=== PATIENT | female | born 1990 | race Caucasian/White ===

== ENCOUNTER 2016-07-11 21:54 | Emergency (ER) | payer BC ==
--- NOTE | 2016-07-11 22:08 | ED ---
Lia More Erika, scribed for Zaid Lomas MD on 07/11/16 at 2202 . Neurological HPI - HPI Summary HPI Summary: Patient is a 25-year-old female presenting to the ED with a CC of witnessed seizure. Pt was brought in to the ED by EMS, who stated pt was post-ictal en route, and then had another seizure around 21:40. They stated they were unable to obtain IV access. They gave pt intranasal Versed, and pt improved. They report pt's vitals were stable en route. Pt has a Hx of seizures, diagnosed as epilepsy. - History of Current Complaint Stated Complaint: SEIZURE Time Seen by Provider: 07/11/16 21:56 Hx Obtained From: Patient, EMS Onset/Duration: Sudden Onset, Started minutes ago, Resolved Timing: Intermittent Episodes Lasting: Onset Severity: Moderate Current Severity: Mild Number of Seizures: 2 Seizure Character: Total-Clonic Aggravating: Nothing Alleviating: EMS Treatment - Versed Associated Signs and Symptoms: Positive: Decreased Level of Consciousness - Post -ictal state Related Hx: Seizure - Allergy/Home Medications Allergies/Adverse Reactions: Allergies Allergy/AdvReac Type Severity Reaction Status Date / Time No Known Allergies Allergy Verified 12/23/15 10:20 PMH/Surg Hx/FS Hx/Imm Hx Endocrine/Hematology History: Denies: Hx Diabetes Cardiovascular History: Denies: Hx Congestive Heart Failure, Hx Hypertension, Hx Pacemaker/ICD Respiratory History: Reports: Hx Asthma, Other Respiratory Problems/Disorders - HEART MURMUR History: Denies: Hx Dialysis, Hx Renal Disease Sensory History: Reports: Hx Contacts or Glasses - contacts Denies: Hx Hearing Aid Opthamlomology History: Reports: Hx Contacts or Glasses - contacts Neurological History: Reports: Hx Seizures, Other Neuro Impairments/Disorders - HEADACHES/BLACKOUTS Psychiatric History: Denies: Hx Panic Disorder - Surgical History Surgery Procedure, Year, and Place: TONSILLECTOMY 1993 - Family History Known Family History: Positive: Cardiac Disease - Extensive FHx, Hypertension, Diabetes - Type II - grandfather Family History: Denies FHx seizures - Social History Alcohol Use: Occasionally Hx Substance Use: No Substance Use Type: Reports: None Hx Tobacco Use: No Smoking Status (MU): Never Smoked Tobacco Review of Systems Negative: Fever Neurological: Other - Seizure, post-ictal state All Other Systems Reviewed And Are Negative: Yes Physical Exam Triage Information Reviewed: Yes Vital Signs On Initial Exam: Temp Pulse Resp BP Pulse Ox 98.6 F 88 16 125/86 99 07/11/16 22:17 07/11/16 22:17 07/11/16 22:17 07/11/16 22:17 07/11/16 22:17 Vital Signs Reviewed: Yes Appearance: Positive: No Pain Distress, Thin Skin: Positive: Warm Eyes: Positive: EOMI, ZOË ENT: Positive: Hearing grossly normal Neck: Positive: Supple Respiratory/Lung Sounds: Positive: Clear to Auscultation, Breath Sounds Present Cardiovascular: Positive: Normal Abdomen Description: Positive: Nontender, Soft Bowel Sounds: Positive: Present Musculoskeletal: Positive: Strength/ROM Intact Neurological: Positive: Sensory/Motor Intact, Alert, Oriented to Person Place, Time, Normal Gait Psychiatric: Positive: Normal Diagnostics - Laboratory Result Diagrams: 07/11/16 22:15 07/11/16 22:15 Lab Statement: Any lab studies that have been ordered have been reviewed, and results considered in the medical decision making process. 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 Pt was treated by EMS with Versed. She was observed in the ED and did not have another seizure, and feels improved. She will be discharged with follow up from neurology. - Diagnoses Provider Diagnoses: Seizure Discharge - Discharge Plan Condition: Stable Disposition: HOME Patient Education Materials: Recurrent Seizures in Adults (ED) Referrals: Swathi Medellin NP [Primary Care Provider] - Zaid Fontaine MD [Medical Doctor] - Additional Instructions: Please follow up with neurology. The documentation as recorded by the Lia zaragoza Erika accurately reflects the service I personally performed and the decisions made by me, Zaid Lomas MD.
[2016-07-11 22:38] LABS: Hematocrit 41 % (35-47); Hemoglobin 13.6 g/dl (12.0-16.0); Mean Corpuscular HGB Conc 33 g/dl (31-36); Mean Corpuscular Hemoglobin 29 pg (27-31); Mean Corpuscular Volume 85 fL (80-97); Mean Platelet Volume 8 um3 (7.4-10.4); Red Blood Count 4.76 10^6/ul (4.0-5.4); Red Cell Distribution Width 13 % (10.5-15); White Blood Count 7.1 10^3/ul (3.5-10.8)
[2016-07-11 23:07] LABS: ALT 18 U/L (7-52); AST 18 U/L (13-39); Albumin 4.9 g/dL (3.2-5.2); Alkaline Phosphatase 82 U/L (34-104); Anion Gap 0 mmol/L (2-11); BUN/Creatinine Ratio 10.7 (8-20); Blood Urea Nitrogen 9 mg/dL (6-24); CO2 Carbon Dioxide 26 mmol/L (22-32); Calcium 10.4 mg/dL (8.6-10.3); Chloride 108 mmol/L (101-111); EGFR African American 108.1 (>60); Globulin 2.3 g/dL (2-4); Glucose 105 mg/dL (70-100); Magnesium 1.9 mg/dL (1.9-2.7); Potassium 3.6 mmol/L (3.5-5.0); Sodium 134 mmol/L (133-145); Total Protein 7.2 g/dL (6.4-8.9)
[2016-07-11 23:45] VITALS: BP 115/86
== END 2016-07-11 23:44 | disposition home or self-care (01) ==
LOC: ED 21:54
DX: R56.9 Unspecified convulsions (principal)
CPT/HCPCS: 36415; 80053; 83605; 83735; 84702; 85025; 93005; 99284

== ENCOUNTER 2016-07-17 18:55 | Emergency (ER) | payer BC ==
[2016-07-17] MEDS ORDERED: NS 0.9% 1000 ML* 1,000 ML IV ONE (19:35)
[2016-07-17 20:24] LABS: Hematocrit 37 % (35-47); Hemoglobin 12.2 g/dl (12.0-16.0); Mean Corpuscular HGB Conc 34 g/dl (31-36); Mean Corpuscular Hemoglobin 28 pg (27-31); Mean Corpuscular Volume 85 fL (80-97); Mean Platelet Volume 8 um3 (7.4-10.4); Red Blood Count 4.31 10^6/ul (4.0-5.4); Red Cell Distribution Width 12 % (10.5-15); White Blood Count 6.5 10^3/ul (3.5-10.8)
[2016-07-17 20:29] LABS: Urine Bilirubin Negative (Negative); Urine Glucose Negative (Negative); Urine Nitrite Negative (Negative)
[2016-07-17 20:36] LABS: Albumin 4.6 g/dL (3.2-5.2); Calcium 9.8 mg/dL (8.6-10.3); EGFR African American 105.2 (>60); EGFR Non-African American 81.8 (>60); Globulin 2.1 g/dL (2-4); Magnesium 1.9 mg/dL (1.9-2.7); Potassium 3.4 mmol/L (3.5-5.0); Total Bilirubin 0.4 mg/dL (0.2-1.0); Total Protein 6.7 g/dL (6.4-8.9)
--- NOTE | 2016-07-17 21:32 | ED ---
I, Oh,Sorandall, scribed for Laith Robert MD on 07/17/16 at 1935 . Neurological HPI - HPI Summary HPI Summary: This 25 y/o female presents to ED for a seizure episode at 1800 PM. Pt reports unspecified aura prior to the episode today and mild confusion after the episode. The episode lasts about 10-12 minutes. Pt is witnessed to have "twitchy " movement as per her baseline during seizures today. PMHx does include known seizure disorder with the last episode of status epilepticus 6 days ago. Pt is currently on lamictal, keppra, and topamax, and states that she recently has had increased episodes since 2 months ago. Pt denies any recent rhinorrhea, cough, fever, chills, or any other flu-like symptoms. No sleep disturbance. Primary care involves Dr. Brock as her neurologist. Pt reports that she was advised to increase dose of her seizure medication by Dr. Naik, but she has been noncompliant to that particular instruction. - History of Current Complaint Stated Complaint: SEIZURE Time Seen by Provider: 07/17/16 19:07 Hx Obtained From: Patient Onset/Duration: Sudden Onset, Resolved Timing: Intermittent Episodes Lasting: Seizure Severity: Moderate Neurological Deficit Location: Generalized Character: Confusion - post -ictal - Allergy/Home Medications Allergies/Adverse Reactions: Allergies Allergy/AdvReac Type Severity Reaction Status Date / Time No Known Allergies Allergy Verified 12/23/15 10:20 Home Medications: Home Medications Lamotrigine [Lamictal] 150 mg PO BEDTIME 07/17/16 [History Confirmed 07/17/16] Topiramate [Topamax] 25 mg PO BEDTIME 07/17/16 [History Confirmed 07/17/16] PMH/Surg Hx/FS Hx/Imm Hx Endocrine/Hematology History: Denies: Hx Diabetes Cardiovascular History: Denies: Hx Congestive Heart Failure, Hx Hypertension, Hx Pacemaker/ICD Respiratory History: Reports: Hx Asthma, Other Respiratory Problems/Disorders - HEART MURMUR History: Denies: Hx Dialysis, Hx Renal Disease Sensory History: Reports: Hx Contacts or Glasses - contacts Denies: Hx Hearing Aid Opthamlomology History: Reports: Hx Contacts or Glasses - contacts Neurological History: Reports: Hx Seizures, Other Neuro Impairments/Disorders - HEADACHES/BLACKOUTS Psychiatric History: Denies: Hx Panic Disorder - Surgical History Surgery Procedure, Year, and Place: TONSILLECTOMY 1994 Infectious Disease History: Denies: Traveled Outside the [place] in Last 30 Days - Family History Known Family History: Positive: Cardiac Disease - Extensive FHx, Hypertension, Diabetes - Type II - grandfather Family History: Denies FHx seizures - Social History Alcohol Use: Occasionally Hx Substance Use: No Substance Use Type: Reports: None Hx Tobacco Use: No Smoking Status (MU): Never Smoked Tobacco Review of Systems Negative: Fever Negative: Sore Throat Neurological: Other - positive for seizure, currently resolved Negative: Headache All Other Systems Reviewed And Are Negative: Yes Physical Exam - Summary Physical Exam Summary: The patient is well-nourished in no acute distress and in no acute pain. The skin is warm and dry and skin color reflects adequate perfusion. HEENT: The head is normocephalic and atraumatic. The pupils are equal and reactive. The conjunctivae are clear and without drainage. Nares are patent and without drainage. Mouth reveals moist mucous membranes and the throat is without erythema and exudate. Neck is supple with full range of motion and non-tender. There are no carotid bruits. There is no neck vein distension. Respiratory: Chest is non-tender. Lungs are clear to auscultation and breath sounds are symmetrical and equal. Cardiovascular: Hear is regular rate and rhythm. There is no murmur or rub auscultated. There is no peripheral edema and pulses are symmetrical and equal. Abdomen: The abdomen is soft and non-tender. There are normal bowel sounds heard in all four quadrants and there is no organomegaly palpated. Musculoskeletal: There is no back pain noted. Extremities are non-tender with full range of motion. There is good capillary refill. There is no peripheral edema or calf tenderness elicited. Neurological: Patient is alert and oriented to person, place and time. The patient has symmetrical motor strength in all four extremities. Cranial nerves are grossly intact. Deep tendon reflexes are symmetrical and equal in all four extremities. Psychiatric: The patient has an appropriate affect and does not exhibit any anxiety or depression. Triage Information Reviewed: Yes Vital Signs On Initial Exam: Initial Vitals Temp Pulse Resp BP Pulse Ox 98.6 F 101 20 126/75 100 07/17/16 19:18 07/17/16 19:18 07/17/16 19:18 07/17/16 19:18 07/17/16 19:18 Vital Signs Reviewed: Yes Diagnostics - Vital Signs Vital Signs Temp Pulse Resp BP Pulse Ox 07/17/16 20:21 99 18 124/73 100 07/17/16 19:18 98.6 F 101 20 126/75 100 - Laboratory Lab Results: Lab Results 07/17/16 07/17/16 07/17/16 Range/Units 20:05 20:05 20:05 WBC 6.5 (3.5-10.8) 10^3/ul RBC 4.31 (4.0-5.4) 10^6/ul Hgb 12.2 (12.0-16.0) g/dl Hct 37 (35-47) % MCV 85 (80-97) fL MCH 28 (27-31) pg MCHC 34 (31-36) g/dl RDW 12 (10.5-15) % Plt Count 226 (150-450) 10^3/ul MPV 8 (7.4-10.4) um3 Neut % (Auto) 55.7 (38-83) % Lymph % (Auto) 35.2 (25-47) % Tift % (Auto) 6.9 (1-9) % Eos % (Auto) 1.4 (0-6) % Baso % (Auto) 0.8 (0-2) % Absolute Neuts (auto) 3.6 (1.5-7.7) 10^3/ul Absolute Lymphs (auto) 2.3 (1.0-4.8) 10^3/ul Absolute Monos (auto) 0.4 (0-0.8) 10^3/ul Absolute Eos (auto) 0.1 (0-0.6) 10^3/ul Absolute Basos (auto) 0.1 (0-0.2) 10^3/ul Absolute Nucleated RBC 0 10^3/ul Nucleated RBC % 0 INR (Anticoag Therapy) 0.96 (0.89-1.11) Sodium (133-145) mmol/L Potassium (3.5-5.0) mmol/L Chloride (101-111) mmol/L Carbon Dioxide (22-32) mmol/L Anion Gap (2-11) mmol/L BUN (6-24) mg/dL Creatinine (0.51-0.95) mg/dL Est GFR ( Amer) (>60) Est GFR (Non-Af Amer) (>60) BUN/Creatinine Ratio (8-20) Glucose (70-100) mg/dL Lactic Acid (0.5-2.0) mmol/L Calcium (8.6-10.3) mg/dL Magnesium (1.9-2.7) mg/dL Total Bilirubin (0.2-1.0) mg/dL AST (13-39) U/L ALT (7-52) U/L Alkaline Phosphatase (34-104) U/L Total Protein (6.4-8.9) g/dL Albumin (3.2-5.2) g/dL Globulin (2-4) g/dL Albumin/Globulin Ratio (1-3) Urine Color Straw Urine Appearance Clear Urine pH 6.0 (5-9) Ur Specific [place] 1.010 (1.010-1.030) Urine Protein Negative (Negative) Urine Ketones Trace H (Negative) Urine Blood Negative (Negative) Urine Nitrate Negative (Negative) Urine Bilirubin Negative (Negative) Urine Urobilinogen Negative (Negative) Ur Leukocyte Esterase Negative (Negative) Urine Glucose Negative (Negative) 07/17/16 07/17/16 Range/Units 20:05 20:05 WBC (3.5-10.8) 10^3/ul RBC (4.0-5.4) 10^6/ul Hgb (12.0-16.0) g/dl Hct (35-47) % MCV (80-97) fL MCH (27-31) pg MCHC (31-36) g/dl RDW (10.5-15) % Plt Count (150-450) 10^3/ul MPV (7.4-10.4) um3 Neut % (Auto) (38-83) % Lymph % (Auto) (25-47) % Tift % (Auto) (1-9) % Eos % (Auto) (0-6) % Baso % (Auto) (0-2) % Absolute Neuts (auto) (1.5-7.7) 10^3/ul Absolute Lymphs (auto) (1.0-4.8) 10^3/ul Absolute Monos (auto) (0-0.8) 10^3/ul Absolute Eos (auto) (0-0.6) 10^3/ul Absolute Basos (auto) (0-0.2) 10^3/ul Absolute Nucleated RBC 10^3/ul Nucleated RBC % INR (Anticoag Therapy) (0.89-1.11) Sodium 138 (133-145) mmol/L Potassium 3.4 L (3.5-5.0) mmol/L Chloride 107 (101-111) mmol/L Carbon Dioxide 24 (22-32) mmol/L Anion Gap 7 (2-11) mmol/L BUN 12 (6-24) mg/dL Creatinine 0.86 (0.51-0.95) mg/dL Est GFR ( Amer) 105.2 (>60) Est GFR (Non-Af Amer) 81.8 (>60) BUN/Creatinine Ratio 14.0 (8-20) Glucose 115 H (70-100) mg/dL Lactic Acid 1.2 (0.5-2.0) mmol/L Calcium 9.8 (8.6-10.3) mg/dL Magnesium 1.9 (1.9-2.7) mg/dL Total Bilirubin 0.40 (0.2-1.0) mg/dL AST 13 (13-39) U/L ALT 12 (7-52) U/L Alkaline Phosphatase 65 (34-104) U/L Total Protein 6.7 (6.4-8.9) g/dL Albumin 4.6 (3.2-5.2) g/dL Globulin 2.1 (2-4) g/dL Albumin/Globulin Ratio 2.2 (1-3) Urine Color Urine Appearance Urine pH (5-9) Ur Specific [place] (1.010-1.030) Urine Protein (Negative) Urine Ketones (Negative) Urine Blood (Negative) Urine Nitrate (Negative) Urine Bilirubin (Negative) Urine Urobilinogen (Negative) Ur Leukocyte Esterase (Negative) Urine Glucose (Negative) Result Diagrams: 07/17/16 20:05 07/17/16 20:05 Lab Statement: Any lab studies that have been ordered have been reviewed, and results considered in the medical decision making process. - EKG 190 Cardiac Rate: NL - 89 bpm EKG Rhythm: Sinus Rhythm Re-Evaluation - Re-Evaluation First Eval Re-Evaluation Time: 21:14 Comment: ERP in room to update pt on blood work results. Course/Dx - Course Assessment/Plan: This 25 y/o female presents to ED for a seizure episode today at 1800 PM. PMHx is signficant for known seizure disorder, and pt is currently on keppra, topamax, and lamictal. Pt reports recent increased frequency of siezures with last episode 6 days ago. Blood work and UA are wnl except elevated serum glucose, slightly depressed potassium level, and trace amount of ketone in urine. EKG is normal. Physical exam finding and bloodwork results are shared with pt, and pt is advised to follow up with her neurologist, Dr. Anglin , as scheduled in [facility]. - Differential Dx Differential Diagnoses Neuro: Positive: Metabolic Abnormality, Seizure Disorder , Vasovagal Reaction - Diagnoses Provider Diagnoses: Seizure disorder Discharge - Discharge Plan Condition: Stable Disposition: HOME Patient Education Materials: Recurrent Seizures in Adults (ED) Referrals: Swathi Medellin NP [Primary Care Provider] - 2 Days Additional Instructions: Please be sure to follow up with your neurologist, Dr. Anglin in [facility] as scheduled. The documentation as recorded by the Man zaragoza Soohyun accurately reflects the service I personally performed and the decisions made by me, Laith Robert MD.
[2016-07-17 21:49] VITALS: BP 126/87
== END 2016-07-17 21:48 | disposition home or self-care (01) ==
LOC: ED 18:55
DX: R56.9 Unspecified convulsions (principal)
CPT/HCPCS: 36415; 80053; 80175; 80201; 81003; 83605; 83735; 85025; 85610; 93005; 96360; 99283

== ENCOUNTER 2018-11-14 14:56 | Emergency (ER) | payer BC, OTHER ==
[2018-11-14 15:10] VITALS: BP 124/87
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
== END 2018-11-14 15:40 | disposition home or self-care (01) ==
LOC: UCEAST 14:56
DX: S46.811A Strain of other muscles, fascia and tendons at shoulder and upper arm level, right arm, initial encounter (principal); W50.0XXA Accidental hit or strike by another person, initial encounter; Y92.215 Trade school as the place of occurrence of the external cause; Y99.0 Civilian activity done for income or pay; R03.0 Elevated blood-pressure reading, without diagnosis of hypertension; J45.909 Unspecified asthma, uncomplicated; Z82.49 Family history of ischemic heart disease and other diseases of the circulatory system; Z83.3 Family history of diabetes mellitus
CPT/HCPCS: 99212; G0463

== ENCOUNTER 2019-04-17 21:19 | Emergency (ER) | payer BC, OTHER ==
--- NOTE | 2019-04-17 21:24 | UC ---
Lower Extremity/Ankle HPI - HPI Summary HPI Summary: 28 yo female presents with LEFT ankle/foot pain. She tells me that she was playing with her dogs this evening around 1830 and inverted her left ankle. Since that time has had pain and swelling to her left ankle/foot. Has been icing the area with no improvement. She is ambulatory without assistance, but has pain with weight bearing. - History of Current Complaint Stated Complaint: ROLLED LEFT ANKLE Time Seen by Provider: 04/17/19 21:24 Hx Obtained From: Patient Hx Last Menstrual Period: implant BC Onset/Duration: Sudden Onset Severity Initially: Moderate Severity Currently: Moderate Pain Intensity: 3 Pain Scale Used: 0-10 Numeric - Allergies/Home Medications Allergies/Adverse Reactions: Allergies Allergy/AdvReac Type Severity Reaction Status Date / Time No Known Allergies Allergy Verified 04/17/19 21:36 Home Medications: Home Medications Naproxen [Naproxen 375 mg tab] 375 mg PO Q12H 04/17/19 [History Confirmed ] PMH/Surg Hx/FS Hx/Imm Hx - Additional Past Medical History Additional PMH: ADHD - Surgical History Surgical History: Yes Surgery Procedure, Year, and Place: TONSILLECTOMY 1993 - Family History Known Family History: Positive: Cardiac Disease - Extensive FHx, Hypertension, Diabetes - Type II - grandfather Family History: Denies FHx seizures - Social History Lives: With Family Alcohol Use: Occasionally Substance Use Type: None Smoking Status (MU): Never Smoked Tobacco Review of Systems All Other Systems Reviewed And Are Negative: No Constitutional: Positive: Negative Skin: Positive: Negative Neurovascular: Positive: Negative Musculoskeletal: Positive: Other: - Ankle injury Neurological: Positive: Negative Psychological: Positive: Negative Physical Exam - Summary Physical Exam Summary: GENERAL: NAD. WDWN. No pain distress. SKIN: No rashes, sores, lesions, or open wounds. CHEST: No accessory muscle use. Breathing comfortably and in no distress. CV: Pulses intact PT and DP. Cap refill <2seconds MSK: LEFT ANKLE/FOOT: FROM. Mild TTP about base 5th MT. NTTP lateral malleolus. Strength 5/5. Mild edema about base of 5th MT. Negative talar tilt. No increased laxity. Negative [place] test. NEURO: Alert. Sensations intact and symmetric B/L LEs PSYCH: Age appropriate behavior. Triage Information Reviewed: Yes Vital Signs: Vital Signs: Temp Pulse Resp BP Pulse Ox 97.8 F 81 16 126/75 100 04/17/19 21:33 04/17/19 21:33 04/17/19 21:33 04/17/19 21:33 04/17/19 21:33 Vital Signs Reviewed: Yes Diagnostics - Radiology XR Radiology Interpretation Completed By: Radiologist Summary of Radiographic Findings: No fx Lower Extremity Course/Dx - Course Course Of Treatment: XR wet read negative for ankle or foot fx. Suspect sprain. Pt was placed in a CAM boot and advised to RICE and take tylenol/ibuprofen as directed for discomfort. F/u with Ortho if symptoms do not improve within 5-7 days - Differential Dx/Diagnosis Provider Diagnosis: Foot sprain Discharge ED - Sign-Out/Discharge Documenting (check all that apply): Patient Departure All imaging exams completed and their final reports reviewed: No - Discharge Plan Condition: Stable Disposition: HOME Patient Education Materials: Foot Sprain (ED) Forms: *Work Release Referrals: Gopal Silva DO [Primary Care Provider] - Rishi Wayne MD [Medical Doctor] - If Needed Additional Instructions: If you develop a fever, shortness of breath, chest pain, new or worsening symptoms - please call your PCP or go to the ED immediately. 1) Rest, Ice, and elevate your foot intermittently throughout the day to reduce pain and swelling 2) Use the walking boot as needed for comfort 3) If your symptoms do not improve in 5-7 days, please call Orthopedics at the number below to schedule an appointment for a recheck - Billing Disposition and Condition Condition: STABLE Disposition: Home
--- OUTSIDE RECORDS SUMMARY | 2019-04-17 21:26 | XMS REPORT | Summary of Care ---
:1990 Author Organization [facility] Address [address] [facility] [place] [address] Care Team Providers Name Role Phone Gopal Silva Primary Care Provider Reason for Visit Reason Comments Other nexplenon Encounter Details Date Type Department Care Team Description 04/01/2019 Office Visit [facility] [place], Nexplanon removal ( Primary Dx); Practice Marika Vila MD Nexplanon insertion; [address] [place] [address] [place] [address] [place] [address] [phone] Allergies Active Allergy Reactions Severity Noted Date Comments No Known Drug Allergy 09/11/2007 documented as of this encounter (statuses as of 04/01/2019) Medications Medication Sig Dispensed Refills Start Date End Date Status Etonogestrel (NEXPLANON) Inject beneath 0 Active 68 MG Subcutaneous the skin. Implant methylphenidate 54 MG Take 54 mg by 30 Tab 0 02/14/2019 Active Oral Tab CRIndications: mouth DAILY. Max Attention deficit Daily Amount: 54 disorder, unspecified mg. hyperactivity presence Hospital, Clinic, or Other Ordered Dose Route Frequency Start Date End Date Status Facility Administered Medication Etonogestrel 68 MG IMPL 1 Each SC NOW 04/01/2019 Active (Ordered as: NEXPLANON)Indications: Nexplanon insertion documented as of this encounter (statuses as of 04/01/2019) Active Problems Problem Noted Date Seizure disorder 09/05/2012 Overview: Sees Dr. Brock. On lamictal. Asthma 09/11/2007 Heart Murmur 09/11/2007 Overview: Innocent murmur. Seen in past by Dr. Ambrosio, pediatric nephrologist. Migraines 09/11/2007 Attention deficit disorder 09/11/2007 documented as of this encounter (statuses as of 04/01/2019) Immunizations Name Administration Dates Next Due DTAP Vaccine 03/03/1994, 03/22/1993, 01/06/1993, 1992 HIB 08/28/1994, 01/06/1993, 1992 Human Papillomavirus 03/29/2007, 11/29/2006, 10/29/2006 Influenza (IM) Preservative Free 04/01/2019, 03/13/2018, 03/16/2016, 05/14/2009, 04/08/2007 Influenza (IM) W/Pres 07/14/2014 MENINGOCOCCAL POLYSACCHARIDE 09/07/2010 VACCINE(MENOMUNE) MMR VACCINE 12/08/1993 Polio - Inactivated Vaccine 03/03/1994, 01/06/1993, 1992 TDAP Vaccine 05/14/2009 Tuberculin Skin Test 08/29/1993 documented as of this encounter Social History Tobacco Use Types Packs/Day Years Used Date Never Smoker Smokeless Tobacco: Never Used Alcohol Use Drinks/Week oz/Week Comments Yes 0 Standard drinks or equivalent 0.0 few drinks a week Sex Assigned at Date Recorded Not on file Job Start Date Occupation Industry Not on file Not on file Not on file Travel History Travel Start Travel End No recent travel history available. documented as of this encounter Last Filed Vital Signs Vital Sign Reading Time Taken Comments Blood Pressure 108/62 04/01/2019 1:00 PM EDT Pulse 79 04/01/2019 1:00 PM EDT Temperature 36.4 04/01/2019 1:00 PM EDT C (97.6 F) Respiratory Rate - - Oxygen Saturation 99% 04/01/2019 1:00 PM EDT Inhaled Oxygen Concentration - - Weight 55.3 kg (122 lb) 04/01/2019 1:00 PM EDT Height 157.5 cm (5' 2") 04/01/2019 1:00 PM EDT Body Mass Index 22.31 04/01/2019 1:00 PM EDT documented in this encounter Patient Instructions Patient InstructionsMarika Cummins MD - 04/01/2019 1:00 PM EDTI removed and replaced your Nexplanon today. You can expect some bruising of your inner arm. If the area becomes hot, red, any purulent drainage, any sign of infection, please return right away. Patient Education Etonogestrel (e toe alex SCHROEDER jadyn) Brand Names: US Implanon [DSC]; Nexplanon What is this drug used for? It is used to prevent . What do I need to tell my doctor BEFORE I take this drug? If you have an allergy to etonogestrel or any other part of this drug. If you are allergic to any drugs like this one, any other drugs, foods, or other substances. Tell your doctor about the allergy and what signs you had, like rash; hives; itching; shortness of breath; wheezing; cough; swelling of face, lips, tongue, or throat; or any other signs. If you have blood clots or have had blood clots in the past. If you have liver tumors. If you have liver disease. If you have unexplained vaginal bleeding. If you have ever had breast cancer or another cancer where hormones make it grow. If you have given within the last 21 days. If you are or may be . Do not take this drug if you are . If you have not started your period. This is not a list of all drugs or health problems that interact with this drug. Tell your doctor and pharmacist about all of your drugs (prescription or OTC, natural products, vitamins) and health problems. You must check to make sure that it is safe for you to take this drug withall of your drugs and health problems. Do not start, stop, or change the dose of any drug without checking with your doctor. What are some things I need to know or do while I take this drug? Tell all of your health care providers that you take this drug. This includes your doctors, nurses, pharmacists, and dentists. Be sure to have regular breast exams and gynecology check-ups. Your doctor will tell you how often to have these. You will also need to do breast self- exams as your doctor has told you. Talk with your doctor. After this drug has been put in, use a non-hormone type of control like condoms until theplacement of this drug has been checked. Talk with your doctor. If you feel that the implant has been broken or bent while in your arm, talk with the doctor. If you get while taking this drug, the chance of outside of the uterus (ectopic ) may be raised. Talk with your doctor. Blood clots have happened with this drug. Sometimes, these blood clots have been deadly. Talk with the doctor. Talk with your doctor if you will need to be still for long periods of time like long trips, bedrest after surgery, or illness. Not moving for long periods may raise your chance of blood clots. A cyst on the ovary may rarely happen. If you have high blood sugar (diabetes), talk with your doctor. This drug may raise blood sugar. Check your blood sugar as you have been told by your doctor. High blood pressure has happened with this drug. Have your blood pressure checked as you have been told by your doctor. This drug may affect certain lab tests. Tell all of your health care providers and lab workers that you take this drug. If you drink grapefruit juice or eat grapefruit often, talk with your doctor. Certain drugs, herbal products, or health problems could cause this drug to not work as well. Be sure your doctor knows about all of your drugs and health problems. This drug may affect how much of some other drugs are in your body. If you are taking other drugs, talk with your doctor. You may need to have your blood work checked more closely while taking this drug with your other drugs. This drug does not stop the spread of diseases like HIV or hepatitis that are passed through blood or having sex. Do not have any kind of sex without using a latex or polyurethane condom. Do not share needles or other things like toothbrushes or razors. Talk with your doctor. If this drug is removed and you do not want to get , use control right after it is removed. has happened shortly after this drug was removed. Talk with the doctor. A test will be done to show that you are NOT before starting this drug. If you get while taking this drug, call your doctor right away. Tell your doctor if you are breast-feeding. You will need to talk about any risks to your baby. What are some side effects that I need to call my doctor about right away? WARNING/CAUTION: Even though it may be rare, some people may have very bad and sometimes deadly sideeffects when taking a drug. Tell your doctor or get medical help right away if you have any of the following signs or symptoms that may be related to a very bad side effect: Signs of an allergic reaction, like rash; hives; itching; red, swollen, blistered, or peeling skin with or without fever; wheezing; tightness in the chest or throat; trouble breathing, swallowing,or talking; unusual hoarseness; or swelling of the mouth, face, lips, tongue, or throat. Signs of liver problems like dark urine, feeling tired, not hungry, upset stomach or stomach pain, light-colored stools, throwing up, or yellow skin or eyes. Signs of high blood sugar like confusion, feeling sleepy, more thirst, more hungry, passing urine more often, flushing, fast breathing, or breath that smells like fruit. Signs of high blood pressure like very bad headache or dizziness, passing out, or change in eyesight. Weakness on 1 side of the body, trouble speaking or thinking, change in balance, drooping on one side of the face, or blurred eyesight. Shortness of breath, a big weight gain, or swelling in the arms or legs. Low mood (depression). Mood changes. Very bad belly pain. Change in eyesight, eye pain, or very bad eye irritation. Loss of eyesight. A lump in the breast or breast soreness. Breast pain. Change in how contact lenses feel in the eyes. Flu-like signs. Vaginal bleeding that is not normal. Call your doctor right away if you have signs of a blood clot like chest pain or pressure; coughing up blood; shortness of breath; swelling, warmth, numbness, change of color, or pain in a leg or arm; or trouble speaking or swallowing. What are some other side effects of this drug? All drugs may cause side effects. However, many people have no side effects or only have minor side effects. Call your doctor or get medical help if any of these side effects or any other side effects bother you or do not go away: Weight gain. Headache. Pimples (acne). Vaginal irritation. Period (menstrual) changes. These include lots of bleeding, spotting, or bleeding between cycles. Irritation where chuy was placed. Belly pain. Throat irritation. Dizziness. Back pain. Upset stomach. Feeling nervous and excitable. These are not all of the side effects that may occur. If you have questions about side effects, franchesca doctor. Call your doctor for medical advice about side effects. You may report side effects to your national health agency. How is this drug best taken? Use this drug as ordered by your doctor. Read all information given to you. Follow all instructions closely. A chuy is placed under the skin in the upper arm. This is a minor surgery. The chuy must be changed every 3 years. Follow what your doctor has told you to do. What do I do if I miss a dose? Call your doctor to find out what to do. How do I store and/or throw out this drug? If you need to store this drug at home, talk with your doctor, nurse, or pharmacist about how to store it. General drug facts If your symptoms or health problems do not get better or if they become worse, call your doctor. Do not share your drugs with others and do not take anyone else's drugs. Keep a list of all your drugs (prescription, natural products, vitamins, OTC) with you. Give this list to your doctor. Talk with the doctor before starting any new drug, including prescription or OTC, natural products, or vitamins. Keep all drugs in a safe place. Keep all drugs out of the reach of children and pets. Throw away unused or drugs. Do not flush down a toilet or pour down a drain unless you are told to do so. Check with your pharmacist if you have questions about the best way to throw out drugs. There may be drug take- back programs in your area. Some drugs may have another patient information leaflet. If you have any questions about this drug, please talk with your doctor, nurse, pharmacist, or other health care provider. If you think there has been an overdose, call your poison control center or get medical care right away. Be ready to tell or show what was taken, how much, and when it happened. Consumer Information Use and Disclaimer This information should not be used to decide whether or not to take this medicine or any other medicine. Only the healthcare provider has the knowledge and training to decide which medicines are rightfor a specific patient. This information does not endorse any medicine as safe, effective, or approved for treating any patient or health condition. This is only a brief summary of general information about this medicine. It does NOT include all information about the possible uses, directions, warnings, precautions, interactions, adverse effects, or risks that may apply to this medicine. This information is not specific medical advice and does not replace information you receive from the healthcare provider. You must talk with the healthcare provider for complete information about the risks and benefits of using this medicine. Last Reviewed Date 2016-12-15 Copyright 2018 [employer] and its affiliates and/ or licensors. All rights reserved. documented in this encounter Progress Notes Marika Cummins MD - 04/01/2019 1:00 PM EDT Nursing Notes: Ivelisse Al LPN 04/01/2019 1:09 PM Signed Chief Complaint Patient presents with Other nexplenon Referred by: Gopal Silva Chief Complaint: Lorena Wright Lader is a 28-y.o. female who presents for removal of old and placement of new nexplanon History of Present Illness/ROS: Patient is here for Nexplanon replacement. Last placed 04/14/2016 by me. She had menses the first year, then none, then started again in December. LMP 2 weeks ago. Review of Systems - General ROS: negative for - chills or fever ENT ROS: negative for - nasal congestion Respiratory ROS: negative for - cough Past Medical History: Diagnosis Date Attention Deficit Disorder 09/11/2007 psych testing 2007: normal intelligence, attention problems Innocent Heart Murmur 09/11/2007 Migraines 09/11/2007 Mild intermittent asthma Seizure disorder (HCC) Past Surgical History: Procedure Laterality Date COLONOSCOPY N/A 12/26/2017 Procedure: COLONOSCOPY; Surgeon: Shila Lynch MD; Location: [facility] GI OR Current Outpatient Medications: Etonogestrel (NEXPLANON) 68 MG Subcutaneous Implant, Inject beneath the skin., Disp: , Rfl: methylphenidate 54 MG Oral Tab CR, Take 54 mg by mouth DAILY. Max Daily Amount: 54 mg., Disp: 30 Tab, Rfl: 0 Current Facility-Administered Medications: Etonogestrel 68 MG IMPL (Ordered as: NEXPLANON), 1 Each, Subcutaneous, NOW, Marika Cummins MD Allergies Allergen Reactions No Known Drug Allergy Social History Socioeconomic History Marital status: Single Spouse name: Not on file Number of children: Not on file Years of education: Not on file Highest education level: Not on file Occupational History Not on file Social Needs Financial resource strain: Not on file Food insecurity: Worry: Not on file Inability: Not on file Transportation needs: Medical: Not on file Non-medical: Not on file Tobacco Use Smoking status: Never Smoker Smokeless tobacco: Never Used Substance and Sexual Activity Alcohol use: Yes Alcohol/week: 0.0 standard drinks Comment: few drinks a week Drug use: No Sexual activity: Yes Partners: Male control/protection: Implant Lifestyle Physical activity: Days per week: Not on file Minutes per session: Not on file Stress: Not on file Relationships Social connections: Talks on phone: Not on file Gets together: Not on file Attends oriental orthodox service: Not on file Active member of club or organization: Not on file Attends meetings of clubs or organizations: Not on file Relationship status: Not on file Intimate partner violence: Fear of current or ex partner: Not on file Emotionally abused: Not on file Physically abused: Not on file Forced sexual activity: Not on file Other Topics Concern Back Care Not Asked Bike Helmet Not Asked Blood Transfusions Not Asked Caffeine Concern Yes Comment: 1 SODA/DAY Exercise Not Asked Hobby Hazards Not Asked International Travel Not Asked Service Not Asked Occupational Exposure Not Asked Seat Belt Not Asked Self-Exams Not Asked Sleep Concern Not Asked Special Diet Not Asked Stress Concern Not Asked Weight Concern Not Asked Social History Narrative Lives with mother, sister in [place], [place] until 2006. Has been living with father in [place], [place]. Family History Problem Relation Age of Onset Heart Father Cancer Maternal Grandfather bladder PHYSICAL EXAMINATION: BP 108/62 (BP Location: Right arm, Patient Position: Sitting) | Pulse 79 | Temp 97.6 F (36.4 C) (Tympanic) | Ht 5' 2" (1.575 m) | Wt 122 lb ( 55.3 kg) | LMP (LMP Unknown) | SpO2 99% | ? No | BMI 22.31 kg/ m Physical Examination: General appearance - alert, well appearing, and in no distress Mental status - alert, oriented to person, place, and time, normal mood, behavior, speech, dress, motor activity, and thought processes Nexplanon is palpable in her left medial upper arm. ASSESSMENT/PLAN: ICD-9-CM ICD-10-CM 1. Nexplanon removal V25.43 Z30.46 REMOVAL OF IMPLANTABLE CONTRACEPTIVE CAPSUL 2. Nexplanon insertion V25.5 Z30.017 HCG, QUALITATIVE, URINE (AMB POCT) INSERTION, NON-BIODEGRADABLE DRUG DELIVERY IMPLANT Etonogestrel 68 MG IMPL (Ordered as: NEXPLANON) 3. Need for vaccination V05.9 Z23 MS FLU VACCINE PRES FREE 6MOS+ ADMINISTRATION VACCINE SINGLE Nexplanon removal: Risks, benefits, and alternatives discussed. Informed consent signed. The patient was place in the supine position with the elbow lateral and wrist near her head, to expose the Nexplanon site. The area was wiped and draped with a sterile fenestrated drape. The area was anesthestized with 1% lidocaine with epinephrine, 1 ml, along the Nexplanon site. Using a #11 blade, a small incision was made along the distal end of the nexplanon, parallel to it. The Nexplanon canister was bluntly dissected free and removed intact. The area was closed with steri-strips, and a bandage. Patient tolerated the procedure well. Complications: none Remove bandage tomorrow, and change daily until healed. Nexplanon Insertion: After risks and benefits were discussed and given in writing, consent was signed. The patient was placed in a supine position with her left arm flexed at the elbow and externally rotated, wrist parallel to her ear. The medial maleolus was identified and the skin was marked at 8 cm From and then 2 cm posterior to that site, 2 cm posterior 2 cm above and at the top if anticipated insertion track. The area was cleaned. The insertion area was anesthesized with 1 ml of 1% plain lidocaine with good result. The Nexplanon real estate appraiser supervisor was inserted at 30 degree angle until the tip was under the skin, then straighted to a horizontal position. With the skin tented, the real estate appraiser supervisor was inserted to the hub. The slider was then pulled down, pulling back the needle and releasing the nexplanon in the subdermal position. The applicator was removed. The Nexplanon capsule was palpable under the skin. The trochar site was closed with a steri-strip, and arm wrapped in sterile gauze. Hemostasis was good. Patient tolerated the procedure well. EBL scant. Bacitracin was placed over both sites. Nexplanon Lot # [id number], ep 12/2020 Date of insertion 9/24/19. Date or removal should be 04/01/2022 Patient was given a Card with the above information. Procedure code: [id number] Complications: while I wiped the area, I failed to use betadine x 3 as per my usual routine, realizing this after the procedure. I disclosed this to her and informed her to call for any redness, any sign of infection, right away. She stated understanding, was herself not concerned. She also requested a influenza vaccine today, which we gave her. ICD-9-CM ICD-10-CM 1. Nexplanon removal V25.43 Z30.46 REMOVAL OF IMPLANTABLE CONTRACEPTIVE CAPSUL 2. Nexplanon insertion V25.5 Z30.017 HCG, QUALITATIVE, URINE (AMB POCT) INSERTION, NON-BIODEGRADABLE DRUG DELIVERY IMPLANT Etonogestrel 68 MG IMPL (Ordered as: NEXPLANON) 3. Need for vaccination V05.9 Z23 MS FLU VACCINE PRES FREE 6MOS+ ADMINISTRATION VACCINE SINGLE documented in this encounter Plan of Treatment Name Type Priority Associated Diagnoses Order Schedule REMOVAL OF IMPLANTABLE Procedures Routine Nexplanon removal Ordered: 2018 CONTRACEPTIVE CAPSUL INSERTION, Procedures Routine Nexplanon insertion Ordered: 04/01/2019 NON-BIODEGRADABLE DRUG DELIVERY IMPLANT ADMINISTRATION VACCINE Procedures Routine Need for vaccination Ordered: SINGLE Health Maintenance Due Date Last Done Comments INFLUENZA VACCINE (#1) 2019 03/13/2018, 03/16/2016, 07/14/2014, Additional history exists DEPRESSION SCREENING 02/15/2020 02/14/2019 Medication Use Agreement 03/20/2020 03/20/2019 PAP SMEAR 03/13/2021 03/13/2018, 03/13/2018, 07/14/2014 HPV IMMUNIZATION SERIES Completed 03/29/2007, 11/29/2006, 10/29/2006 MENINGOCOCCAL VACCINE IMM Completed 09/07/2010 PNEUMOCOCCAL 0-64 YRS Aged Out No longer eligible based on patient's age to complete this topic documented as of this encounter Procedures Procedure Name Priority Date/Time Associated Diagnosis Comments HCG, QUALITATIVE, Routine 04/01/2019 1:00 PM Nexplanon insertion Results for this URINE (AMB POCT) EDT procedure are in the results section. documented in this encounter Results HCG, QUALITATIVE, URINE (AMB POCT) (04/01/2019 1:00 PM EDT) HCG QUAL URINE (POCT) Negative Negative [facility] Control Line Present Present [facility] PO[facility] Lot Number [id number] [facility] Expiration Date 03/07/20 [facility] PO[facility] Specimen Performing Organization Address City/State/Zipcode Phone Number [facility] [address] [place] [address] documented in this encounter Visit Diagnoses Diagnosis Nexplanon removal - Primary Surveillance of previously prescribed implantable subdermal contraceptive Nexplanon insertion Insertion of implantable subdermal contraceptive Need for vaccination Need for prophylactic vaccination and inoculation against unspecified single disease documented in this encounter Insurance Payer Benefit Plan / Subscriber ID Effective Dates Phone Address Type Group [employer] xxxxxxxxxxxx 2018-Present [employer] (Work) documented as of this encounter Advance Directives Type Date 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
[2019-04-17 21:36] VITALS: BP 126/75
--- NOTE | 2019-04-18 12:13 | UC ---
- Progress Note Progress Note: RADIOLOGY REPORTS REVIEWED. NEGATIVE FOR FRACTURE. NO CHANGE IN MANAGEMENT. Course/Dx - Diagnoses Provider Diagnoses: Foot sprain Discharge ED - Sign-Out/Discharge Documenting (check all that apply): Post-Discharge Follow Up All imaging exams completed and their final reports reviewed: Yes - Discharge Plan Condition: Stable Disposition: HOME Patient Education Materials: Foot Sprain (ED) Forms: *Work Release Referrals: Rishi Wayne MD [Medical Doctor] - If Needed Gopal Silva DO [Primary Care Provider] - Additional Instructions: If you develop a fever, shortness of breath, chest pain, new or worsening symptoms - please call your PCP or go to the ED immediately. 1) Rest, Ice, and elevate your foot intermittently throughout the day to reduce pain and swelling 2) Use the walking boot as needed for comfort 3) If your symptoms do not improve in 5-7 days, please call Orthopedics at the number below to schedule an appointment for a recheck - Billing Disposition and Condition Condition: STABLE Disposition: Home
== END 2019-04-17 22:16 | disposition home or self-care (01) ==
LOC: UCEAST 21:19
DX: S93.602A Unspecified sprain of left foot, initial encounter (principal); X50.0XXA Overexertion from strenuous movement or load, initial encounter; Y93.89 Activity, other specified; Y92.9 Unspecified place or not applicable
CPT/HCPCS: 99212; G0463